=== PATIENT | male | born 1950 | race Caucasian/White ===

== ENCOUNTER 2017-01-14 12:17 | Emergency (ER) ==
[2017-01-14 12:27] VITALS: BP 171/104; TEMP 98.5; BMI 15.9
--- NOTE | 2017-01-14 13:58 | ED.PDOC ---
General ED Provider: Dr. QUENTIN CHARLES Chief Complaint: Constipation Stated Complaint: constipation Time Seen by Physician: 12:30 Mode of Arrival: Walk-In Information Source: Patient Exam Limitations: No limitations Nursing and Triage Documentation Reviewed and Agree: Yes GI Complaint Exam - Abdominal Pain Complaint/Exam Onset: Gradual Duration: 3 days Symptoms Are: Still present (has not moved bowel 3 days) Timing: Constant Initial Severity: Mild Current Severity: Mild Location of Pain: Diffuse Character: Reports: Dull Aggravating: Reports: None Alleviating: Reports: None Associated Signs and Symptoms: Denies: Diaphoresis, Fever, Cough, Chest pain, Dizziness, Back pain, Constipation, Blood in stool, Dysuria, Urinary frequency, Decreased urine output, Decreased appetite, Discharge, Nausea, Vomiting, Diarrhea, Decreased activity Related History: Reports: Similar episode AAA Risk Factors: Reports: None Cardiac Risk Factors: Reports: None Testicular Torsion Risk Factors: Reports: None Surgical Obstruction Risk Factors: Reports: None Related Surgical History: Reports: None Abdominal Findings: Present: None Review of Systems - Review Of Systems Constitutional: Reports: No symptoms Eyes: Reports: No symptoms Ears, Nose, Mouth, Throat: Reports: No symptoms Respiratory: Reports: No symptoms Cardiac: Reports: No symptoms GI: Reports: Constipated : Reports: No symptoms Musculoskeletal: Reports: No symptoms Skin: Reports: No symptoms Neurological: Reports: No symptoms Endocrine: Reports: No symptoms Hematologic/Lymphatic: Reports: No symptoms All Other Systems: Reviewed and Negative Past Medical History - Past Medical History Previously Healthy: Yes Endocrine: Reports: None Cardiovascular: Reports: None Respiratory: Reports: None Hematological: Reports: None Gastrointestinal: Reports: None Genitourinary: Reports: None Neuro/Psych: Reports: None Musculoskeletal: Reports: None Cancer: Reports: None - Surgical History General Surgical History: Reports: None - Family History Family History: Reports: None - Social History Smoking Status: Never smoker Hx Substance Use: No Alcohol Screening: None Physical Exam - Physical Exam Appearance: Well-appearing, No pain distress, Well-nourished Eyes: NIEVES, EOMI, Conjunctiva clear ENT: Ears normal, Nose normal, Oropharynx normal Respiratory: Airway patent, Breath sounds clear, Breath sounds equal, Respirations nonlabored Cardiovascular: RRR, Pulses normal, No rub, No murmur GI/: Soft, Nontender, No masses, Bowel sounds normal, No Organomegaly Musculoskeletal: Normal strength, ROM intact, No edema, No calf tenderness Skin: Warm, Dry, Normal color Neurological: Sensation intact, Motor intact, Reflexes intact, Cranial nerves intact, Alert, Oriented Psychiatric: Affect appropriate, Mood appropriate Interpretation - Radiology Interpretation Radiology Interpretation By: Radiologist Critical Care Note - Critical Care Note Total Time (mins): 0 Course - Course Orders, Labs, Meds: Orders Category Date Time Status CT ABDOMEN/PELVIS WO CONTRAST Stat RADS 01/14/17 12:30 Taken Vital Signs: Temp Pulse Resp BP Pulse Ox 01/14/17 12:22 98.5 F 89 16 171/104 H 96 Departure - Departure Time of Disposition: 14:45 Disposition: HOME SELF-CARE Discharge Problem: Constipation Instructions: Constipation (ED), Abdominal Pain (ED) Condition: Good Pt referred to PMD for follow-up: Yes Additional Instructions: Please call your Family Physician as soon as possible to schedule a follow-up appointment. Allergies/Adverse Reactions: Allergies No Known Allergies Allergy (Unverified 01/14/17 12:19) Home Medications: Ambulatory Orders Formoterol Fumarate [Foradil] 12 mcg IH DAILY 01/14/17 Mometasone/Formoterol [Dulera 100 Mcg/5 Mcg Inhaler] 8.8 gm IH QID 01/14/17 Omeprazole Magnesium [Prilosec Otc] 20 mg PO DAILY 01/14/17 Sulfacetamide Sodium [Bleph-10 Opth Cristiane] 2 drop OP ONCE 01/14/17
--- NOTE | 2017-01-14 14:06 | CT ---
EXAM: CT ABDOMEN AND PELVIS HISTORY: Constipation, rectal pain TECHNIQUE: CT abdomen and pelvis without intravenous contrast. Images were reconstructed using 3 m m section thickness. Reformations were prepared. COMPARISON: None FINDINGS: Diagnostic limitations exist without including contrast enhanced images. No focal hepatic or spleni c lesions identified. Gallbladder is within normal limits. Pancreas and adrenal glands appear norm al. A few small cysts of the right kidney largest at 2.2 cm probably representing cysts. There is no nephrolithiasis or hydronephrosis. No ureteral obstruction. Moderate vascular calcifications. No gastric distension. What probably represents the appendix has no evidence of inflammation. There is a large amount retained fecal material within the rectal vault distending the rectum to about 6. 6 cm. The remainder of the colon is unremarkable. There is no evidence of stercoral colitis, pneuma tosis or perirectal fluid collection. Bowel gas pattern is nonobstructive. Urinary bladder and pro state are within normal limits. There is no ascites. There is a small fatty umbilical hernia with a transverse neck of about a centimeter likely of no cu rrent clinical significance. Small fatty left inguinal hernia. Moderate degenerative changes of th e lumbar spine with mild scoliosis. Lung bases are free of acute infiltrate. No pneumoperitoneum. IMPRESSION: 1. Early fecal impaction of the rectum. Nonobstructive bowel gas pattern. No current evidence of s tercoral colitis, pneumatosis or perirectal fluid collection. 2. Right renal cortical cysts. 3. Moderate vascular calcifications.
[2017-01-14] MEDS: CITRATE OF MAGNESIA PO STA (15:44)
== END 2017-01-14 16:40 | disposition home or self-care (01) ==
LOC: ED 12:17
DX: K59.00 Constipation, unspecified (principal)
CPT/HCPCS: 99283